=== PATIENT | female | born 1985 | race American Indian/Alaskan Native ===

== ENCOUNTER → 2025-04-12 09:26 | Outpatient (CLI) | payer BC, SELFPAY ==
[2025-04-12 19:28] LABS: Alanine Aminotransferase 19 IU/L (<35); Albumin 4.4 g/dL (3.5-5.0); Albumin Globulin Ratio 1.3 (1.0-2.8); Alkaline Phosphatase 132 U/L (38-126); Blood Urea Nitrogen 13 mg/dL (7-17); Calcium 9.6 mg/dL (8.4-10.2); Carbon Dioxide 28 mmol/L (22-32); Chloride 101 mmol/L (98-107); Cholesterol 228 mg/dL (140-199); Estimated Glomerular Filt Rate > 60 mL/min (>60); Globulin 3.3 g/dL (1.7-4.1); Glucose 93 mg/dL (70-99); HDL Cholesterol 55 mg/dL (40-60); HEMOLYSIS 17 (0-50); Potassium 3.9 mmol/L (3.4-5.1); Sodium 137 mmol/L (137-145); Total Protein 7.7 g/dL (6.3-8.2); Triglycerides 139 mg/dL (35-150)
[2025-04-12 19:44] LABS: Vitamin D 25 Hydroxy (D3) 53.5 ng/mL (30.0-100.0)
[2025-04-12 19:59] LABS: Thyroid Stimulating Hormone 0.926 uIU/mL (0.47-4.68)
[2025-04-12 20:11] LABS: Hemoglobin A1C% w Est Avg Glu 4.9 % (4.0-6.0)
== END ==
PROVIDERS: PCP Family Medicine; Visit Provider Family Medicine
DX: O13.9 Gestational [pregnancy-induced] hypertension without significant proteinuria, unspecified trimester (principal); Z39.1 Encounter for care and examination of lactating mother; F41.9 Anxiety disorder, unspecified; H81.09 Meniere's disease, unspecified ear
CPT/HCPCS: 80053; 80061; 82306; 83036; 84443

== ENCOUNTER → 2025-04-27 13:12 | Outpatient (CLI) | payer BC, SELFPAY ==
[2025-04-27 19:18] LABS: Hematocrit 42.0 % (36-46); Hemoglobin 14.4 g/dL (12.0-16.0)
[2025-04-27 20:04] LABS: Ferritin 37 ng/mL (6-137)
== END ==
PROVIDERS: PCP Family Medicine; Visit Provider Family Medicine
DX: Z86.2 Personal history of diseases of the blood and blood-forming organs and certain disorders involving the immune mechanism (principal)
CPT/HCPCS: 82728; 85014; 85018